=== PATIENT | male | born 2000 | race African-American/Black ===

== ENCOUNTER 2021-02-23 15:25 | Emergency (ER) | payer OTHER ==
[~2021-02-23] VITALS: Ht 172.7 cm; Wt 59.0 kg
[2021-02-23 15:28] VITALS: BP 147/94
[2021-02-23] MEDS ORDERED: KEFLEX500 M1 PO (16:10)
== END 2021-02-23 16:32 | disposition home or self-care (01) ==
LOC: ER 15:25
DX: S61.211A Laceration without foreign body of left index finger without damage to nail, initial encounter (principal); W18.39XA Other fall on same level, initial encounter; Y93.67 Activity, basketball; Y92.89 Other specified places as the place of occurrence of the external cause; Y99.8 Other external cause status

== ENCOUNTER 2021-07-27 13:06 | Inpatient (IN) | payer OTHER ==
[~2021-07-27] VITALS: Ht 152.4 cm; Wt 62.1 kg
[~2021-07-27 13:06] MED LIST: KEFLEX500 M1 PO
[2021-07-27 13:27] VITALS: BP 145/86
[2021-07-27 14:10] LABS: HEMATOCRIT 44.3 % (42.0-52.0); HEMOGLOBIN 15.3 gm/dL (14.0-18.0); MCH 30.9 pg (26.0-34.0); MCHC 34.6 g/dL (28.0-37.0); MCV 89.4 fL (80.0-100.0); RBC 4.95 mil/uL (4.50-6.00); WBC 9.2 thou/uL (4.0-11.0)
[2021-07-27 14:18] LABS: CALCIUM 9.4 mg/dL (8.5-10.1); POTASSIUM 3.8 mmol/L (3.5-5.1)
[2021-07-27 14:24] LABS: ALBUMIN 3.6 g/dL (3.4-5.0); TOTAL PROTEIN 8.4 g/dL (6.4-8.2)
--- NOTE | 2021-07-27 15:17 | NUR ---
ASSUMED CARE AT THIS TIME
[2021-07-27 19:46] VITALS: BP 130/73
[2021-07-27 20:45] VITALS: BP 130/70
--- NOTE | 2021-07-28 00:55 | NUR ---
Pt admitted in the unit at 1999, A&OX4, up ad capri, muscle strength 5/5 all extremities, voices no pain or discomofort at this time on room air, active bowel sounds in all four quadrents last BM 07/26/2021, lungs clear to auscultation, consent obtained, education provided on fall prevention, dvt and plan of care. Pt skin intact, medication reviewed with the pt no reconciliation needed at this time, NPO order in place by the ENT notified pt. IV on the Left AC IV NS running, no edema noted admission VS obtained.
[2021-07-28 01:18] VITALS: BP 115/69
[2021-07-28 08:11] VITALS: BP 130/79
[2021-07-28 10:16] LABS: HEMATOCRIT 42.2 % (42.0-52.0); HEMOGLOBIN 13.9 gm/dL (14.0-18.0); MCH 29.8 pg (26.0-34.0); MCHC 32.9 g/dL (28.0-37.0); MCV 90.6 fL (80.0-100.0); RBC 4.66 mil/uL (4.50-6.00); WBC 10.9 thou/uL (4.0-11.0)
[2021-07-28 11:23] VITALS: BP 130/79
[2021-07-28 12:15] VITALS: BP 136/83
--- NOTE | 2021-07-28 14:27 | NUR ---
ASSUMED CARE OT PT AT 0700 THIS MORNING. PT HAS INTERIOR SWELLING IN THE NECK. LYMPHADEMIA NOTED IN THE PHYSICIAN NOTES. PT IS A/OX4 WITH NO ISSUES SWALLOWIUNG AND CAN CONVERSE WITHOUT ISSUE. PT IS INDEP AND WALKS TO RESTROOM. ASSESSMENTS NOTED IN THE CHART AND OTHERWISE UNREMARKABLE. CALL LIGHT AND OTHER NEEDS ARE WITHIN REACH. MEDS AND TX GIVEN NEEDED AND SCHEDULED. WILL MONITOR AND NOTE ANY CHANGES.
[2021-07-28 16:30] VITALS: BP 138/82
[2021-07-28 20:00] VITALS: BP 121/77
--- NOTE | 2021-07-28 23:42 | NUR ---
ASSUMED CARE OF PT AT 1900. BEDSIDE REPORT RECIEVED. PAN ASSESSMENT COMPLETE. PT AOX4, DENIES ANY PAIN AT THIS TIME. PT IS NPO PER ENT, PROVIDED EDUCAITON ON NPO STATUS. IVF RUNNING PER MAR. SCHEDULED MEDICATIONS GIVEN PER MAR. PT UP ADLIB. L AC PIV CDI, PATENT. ALL NEEDS MET, WILL CONTINUE TO MONITOR. CALL LIGHT IN REACH
--- NOTE | 2021-07-29 03:51 | NUR ---
I CONCUR WITH THE PT ASSESSMENTS AND NOTES BY TAJ HSI
[2021-07-29 04:05] VITALS: BP 118/97
[2021-07-29 07:44] VITALS: BP 128/77
--- NOTE | 2021-07-29 08:45 | HC ---
[facility] [place] [address] CONSULTATION Name: CAMERON VEGA Room #: 441-P ADM IN M.R.#: [id number] Admission: 07/27/21 Attend Phys: Pranay Morse MD Discharge: Date of : 00 Report #: [id number] THIS REPORT FOR: cc: FAM - No family physician/PCP FAM - No family physician/PCP Amador Joe MD ~ DATE OF SERVICE: 07/28/2021 SURGEON: Amador Joe MD REASON FOR CONSULTATION: Acute pharyngitis with lymphadenopathy. HISTORY OF PRESENT ILLNESS: The patient is a 21-year-old male presenting to the emergency room yesterday afternoon complaining of pain in his throat and pain with swallowing. Symptoms have been ongoing for one week. Apparently, he had not seen a physician and not been treated as an outpatient. I have talked with the physician's lens assistant in the Emergency Department as well as personally reviewed his CT scan, showing significant bilateral adenopathy without a discrete mass, 4+ tonsils meeting in the midline and a retropharyngeal hypodense area. The radiologist described this as lymphatic fluid secondary to lymphoid hyperplasia and reactive changes rather than a true retropharyngeal abscess. In addition, because of the lack of significant swelling in the area, this was not clinically consistent with an abscess. He presented with a white count of 9200 with no left shift and a hemoglobin of 15.3. A Monospot was negative. Rapid group A was negative. COVID test was negative and serum electrolytes were normal with the exception of an elevated SGOT and alkaline phosphatase. PAST MEDICAL HISTORY: Reviewed with the patient today. He denies any other chronic medical problems. He is a healthy, active 21-year-old. FAMILY HISTORY: He also denies any significant disease in his family, especially heart disease, diabetes or stroke. MEDICATIONS: His electronic MAR was reviewed. ALLERGIES: None. SOCIAL HISTORY: He denies alcohol or tobacco use. REVIEW OF SYSTEMS: Other than difficulty swallowing, which is improved this morning on treatment, his 12-point review of systems is negative. PHYSICAL EXAMINATION: VITAL SIGNS: This morning show temperature of 97.1 with a T-max of 98.2, pulse of 94, respiration of 18, blood pressure 130/79, 99% on room air. HEENT: Normocephalic. Pupils equal, round, reactive to light. Otologic exam: [facility] [address] [place] [address] CONSULTATION Name: DIDIER VEGAGARY Room #: 441-P [facility] IN ..#: [id number] Admission: 07/27/21 Attend Phys: Pranay Morse MD Discharge: Date of : 00 Report #: [id number] Normal tympanic membranes. Nasal exam is clear with no significant edema or erythema of the turbinates. Oral cavity and oropharynx show 4+ tonsil hypertrophy. Based on the CT, this has decreased in size as the posterior pharynx is visible. I do not see a bulge, erythema or edema. NECK: Shows bilateral jugulodigastric adenopathy, which is symmetric. Trachea is midline. NEUROLOGIC: Cranial nerves II-XII are intact. Motor, sensory and cerebellar exams are normal. IMPRESSION AND PLAN: According to the patient, symptoms are much improved on IV clindamycin and IV Decadron. I have reviewed the CT personally. The posts retropharyngeal area does look hypodense. I am not convinced that this is a retropharyngeal abscess. The patient's clinical presentation is very consistent with acute mononucleosis. I talked with the physician's lens assistant in the emergency room about ordering Suze-Brakley virus, IgG and IgM and cytomegalovirus IgG and IgM as well as HIV, which is pending. This patient clinically is improving with no significant leukocytosis, no fever and improved clinical symptoms, I would suggest that we continue to treat aggressively medically and hold on surgical intervention at this time. The patient may resume a soft diet today. I will be available for any change in clinical status. I will discuss with Dr. Morse, his Hospitalist. I appreciate the consultation and ability to share in his care. <ELECTRONICALLY SIGNED> By: Amador Joe MD 07/29/21 [id number] Amador Joe MD /nt
[2021-07-29] MEDS ORDERED: AUGMENTIN 875-1 EACH PO (12:28)
[2021-07-29] MEDS ORDERED: ACETAMINOPHEN325 M1 PO (12:28)
[2021-07-29] MEDS ORDERED: MEDROL4 M1 PO (12:28)
[2021-07-29 13:08] VITALS: BP 128/77
[2021-07-31 15:08] LABS: ANTI-VCA/IgM <36.0 U/mL (0.0-35.9)
== END 2021-07-29 13:52 | disposition home or self-care (01) | DRG 153 ==
LOC: ER 13:06 → EROBS 19:24 → 4S 19:59
PROVIDERS: Nurse Practitioner Family; ADMIT Hospitalist; ATTEND Hospitalist
DX: J02.9 Acute pharyngitis, unspecified (principal); Z20.822 Contact with and (suspected) exposure to COVID-19; R59.1 Generalized enlarged lymph nodes; Z79.899 Other long term (current) drug therapy
CPT/HCPCS: 10195